=== PATIENT | female | born 1945 | race Caucasian/White ===

== ENCOUNTER 2017-03-30 12:27 | Outpatient (CLI) | payer OTHER, MEDICARE | END 2017-03-30 17:28 | disposition home or self-care (01) | LOC: SMA 12:27 | PROVIDERS: ATTEND Specialist | DX: Z12.31 Encounter for screening mammogram for malignant neoplasm of breast (principal) | CPT/HCPCS: G0202 ==

== ENCOUNTER 2018-06-11 09:40 | Outpatient (CLI) | payer OTHER, MEDICARE | END 2018-06-11 19:48 | disposition home or self-care (01) | LOC: SMA 09:40 | PROVIDERS: ATTEND Specialist | DX: Z12.31 Encounter for screening mammogram for malignant neoplasm of breast (principal) | CPT/HCPCS: 77067 ==

== ENCOUNTER 2019-07-31 11:36 | Outpatient (CLI) | payer OTHER, MEDICARE | END 2019-07-31 21:14 | disposition home or self-care (01) | LOC: SMA 11:36 | PROVIDERS: ATTEND Specialist | DX: Z12.31 Encounter for screening mammogram for malignant neoplasm of breast (principal) | CPT/HCPCS: 77067 ==